=== PATIENT | female | born 1960 | race Caucasian/White ===

== ENCOUNTER 2023-09-01 06:36 | Outpatient (CLI) | payer BC, SELFPAY ==
[2023-09-01 07:08] VITALS: BP 147/90; PULSE 93; RESP 16; O2SAT 100
== END 2023-09-01 08:23 | disposition home or self-care (01) ==
LOC: US 06:40
PROVIDERS: Visit Provider Family Medicine
DX: M76.01 Gluteal tendinitis, right hip (principal); M25.551 Pain in right hip
CPT/HCPCS: 27006; 76942; J0665